=== PATIENT | female | born 1950 | race Caucasian/White ===

== ENCOUNTER 2016-10-17 07:17 | Emergency (ER) | payer MEDICARE, BC ==
[~2016-10-17] VITALS: Ht 154.9 cm; Wt 116.1 kg
[2016-10-17] MEDS ORDERED: HALFPRIN81 MG PO (09:03)
[2016-10-17] MEDS ORDERED: GLUCOPHAGE500 MG PO (09:04)
[2016-10-17] MEDS ORDERED: NOVOLIN 70100 UNIT/1 SUBCUT ×2 (09:05→09:06)
[2016-10-17] MEDS ORDERED: TRIAMCINOLONE A15 GM TOP (09:07)
[2016-10-17] MEDS ORDERED: PRAVACHOL40 MG PO (09:08)
[2016-10-17] MEDS ORDERED: STOOL SOFTENER100 MG PO (09:08)
[2016-10-17] MEDS ORDERED: PRINIVIL20 MG PO (09:09)
[2016-10-17] MEDS ORDERED: NORVASC5 MG PO (09:09)
[2016-10-17] MEDS ORDERED: COZAAR100 MG PO (09:10)
[2016-10-17] MEDS ORDERED: SYNTHROID150 MCG PO (09:10)
[2016-10-17] MEDS ORDERED: TYLENOL500 MG PO ×2 (09:11→09:12)
== END 2016-10-17 09:24 | disposition short-term general hospital (02) ==
LOC: ER 07:17
DX: E11.649 Type 2 diabetes mellitus with hypoglycemia without coma (principal); Z86.73 Personal history of transient ischemic attack (TIA), and cerebral infarction without residual deficits; E78.5 Hyperlipidemia, unspecified; I10 Essential (primary) hypertension; E03.9 Hypothyroidism, unspecified; M19.90 Unspecified osteoarthritis, unspecified site; Z90.49 Acquired absence of other specified parts of digestive tract; Z90.710 Acquired absence of both cervix and uterus; Z88.5 Allergy status to narcotic agent; Z91.018 Allergy to other foods